=== PATIENT | female | born 1940 | race Caucasian/White ===

== ENCOUNTER 2017-03-16 11:48 | Emergency (ER) | payer OTHER, MEDICARE ==
[~2017-03-16] VITALS: Ht 167.6 cm; Wt 113.4 kg
[2017-03-16 11:54] VITALS: BP 180/95
--- NOTE | 2017-03-16 12:36 | ED GI/GU/ABDOMINAL COMPLAINT ---
History of Present Illness General Chief Complaint: Female Urogenital Problems Stated Complaint: ?KIDNEY STONE Source: patient Exam Limitations: no limitations Vital Signs & Intake/Output Vital Signs & Intake/Output Vital Signs Date Time Temp Pulse Resp B/P B/P Pulse O2 O2 Flow FiO2 Mean Ox Delivery Rate 03/16 1154 96.9 62 18 180/95 95 Room Air Allergies Coded Allergies: NO KNOWN ALLERGIES (02/28/13) Triage Note: 76 Y/O FEMALE C/O ? KIDNEY STONE. STATES SHE HAD HEMATURIA OVER THE WEEKEND FOR 1 DAY BUT NO PAIN. TODAY BEGAN TO HAVE R FLANK PAIN RADIATING INTO RLQ. CALLED DOCTOR AND WAS PRESCRIBED ANTIBIOTIC FOR PRESUMED UTI. ALSO GIVEN OUTPT APPT FOR ULTRASOUND OF KIDNEYS AND BLADDER. REPORTS CONTINUED PAIN AND NAUSEA. URINE REQUESTED, STATES SHE WILL NEED A HAT TO COLLECT SAMPLE Triage Nurses Notes Reviewed? yes ? N Is pt currently ? No Onset: Gradual Duration: waxing and waning Timing: remote history Quality/Severity: moderate, sharpness Severity Numbers: 8 Location: right flank, right lower quadrant Radiation: groin Activities at Onset: none No Modifying Factors: none HPI: Patient is a 76-year-old female presenting to the emergency department with chief complaint of right flank pain that started approximately 5 days ago has been intermittent. She also noticed hematuria with onset of symptoms 5 days ago. Since then symptoms have been waxing and waning. When the pain comes on its moderate, 8 out of 10 and sharp. Pain radiates around her right flank and into her groin area. Positive dysuria. Positive hematuria. No fevers or chills. She saw her primary care physician yesterday who started her on antibiotics for a urinary tract infection. At the time she saw her primary care physician she was not having any pain any her urine appeared clear. Patient reports nausea since last night, no vomiting. Remote history of kidney stone 4 years ago. History of hypERparathyroidism. (NICK SHERWOOD) Reconcile Medications Hydrocodone/Acetaminophen ([place] 5-325 Tablet) 5 MG-325 MG TABLET 1-2 TAB PO Q4-6 PRN PRN PAIN Ibuprofen 600 MG TABLET 1 TAB PO Q6PRN PRN pain with food Ondansetron (Zofran Odt) 4 MG TAB.RAPDIS 1 TAB SL TID PRN NAUSEA Oxycodone HCl/Acetaminophen (Percocet 5-325 MG Tablet) 5 MG-325 MG TABLET 1-2 TAB PO Q6P PRN severe pain Tamsulosin HCl (Flomax) 0.4 MG CAP.ER.24H 1 CAP PO DAILY KIDNEY STONE (ALIREZA KRISHNAMURTHY,KEYONNA Contreras) Past History Travel History Traveled to [place] past 21 day No Medical History Any Pertinent Medical History? see below for history Neurological: NONE EENT: NONE Cardiovascular: hypertension Respiratory: NONE Gastrointestinal: NONE Hepatic: NONE Renal: NONE Musculoskeletal: NONE Psychiatric: NONE Endocrine: hypothyroidism, PARATHYROID DISEASE Blood Disorders: NONE Cancer(s): NONE CONSULTING PSYCHIATRIST/Reproductive: NONE Surgical History Surgical History: non-contributory Psychosocial History What is your primary language Fijian Tobacco Use: Current Not Daily Family History Hx Contributory? No (NICK SHERWOOD) Review of Systems Review of Systems Constitutional: Reports: no symptoms. Comments Review of systems: See HPI, All other systems negative. Constitutional, no chills fever or weight loss HEENT: No visual changes no sore throat no congestion Cardiovascular: No chest pain ,palpitation , orthopnea or ankle swelling Skin, no jaundice no rashes Respiratory: No dyspnea cough sputum or hemoptysis GI: no vomiting : Positive dysuria and hematuria Muscle skeletal: no back pain, no neck pain, Neurologic: No numbness no confusion, no headaches Psych: No stress anxiety Immunology: No splenectomy or history of AIDS (NICK SHERWOOD) Physical Exam Physical Exam General Appearance: well developed/nourished, no apparent distress, alert, awake , comfortable Gastrointestinal: normal bowel sounds, soft, tenderness (RIGHT FLANK) Comments: Well-developed well-nourished person in no acute distress HEENT:Pupils equally round and reactive to light and accommodation. Nose is atraumatic. Neck: Normal inspection Back: MINIMAL right CVA tenderness. Full range of motion Cardiovascular: Regular rate and rhythms no murmurs rubs or gallops, normal JVP Respiratory: Chest nontender. No respiratory distress.breath sounds clear to auscultation bilaterally Abdomen: Soft, obese, mild tenderness to palpation over the right flank, no right lower quadrant pain to palpation, nondistended, no appreciable organomegaly. Normal bowel sounds. No ascites Extremity: No edema Neuro: Alert oriented x3 Skin: No appreciable rash on exposed skin, skin is warm and dry. Psych: Mood and affect is normal, memory and judgment is normal. Core Measures ACS in differential dx? No Severe Sepsis Present: No Septic Shock Present: No (JADON GARRETT,NICK) Progress Differential Diagnosis: hernia, kidney stone, ovarian cyst, UTI/pyelo, HYDRONEPHROSIS, PYELONEPHRITIS Plan of Care: Orders Procedure Date/time Status Add-on Test (ER Only) 03/16 1247 Active PARATHYROID HORMONE 03/16 1236 Complete COMPREHENSIVE METABOLIC PANEL 03/16 1236 Complete CBC WITHOUT DIFFERENTIAL 03/16 1236 Complete CULTURE,URINE 03/16 1152 Active URINALYSIS 03/16 1152 Complete Laboratory Tests 03/16/17 1256: Anion Gap 10, Estimated GFR 31 L, BUN/Creatinine Ratio 22.5, Glucose 83, Calcium 11.3 H, Total Bilirubin 0.5, AST 28, ALT 28, Alkaline Phosphatase 92, Total Protein 6.9, Albumin 4.5, Globulin 2.4, Albumin/Globulin Ratio 1.9, PTH Intact 332.1 H, CBC w Diff NO MAN DIFF REQ, RBC 4.06 L, MCV 89.1, MCH 29.2, RDW 14.6 H, MPV 9.7, Gran % 74.0, Lymphocytes % 15.6 L, Monocytes % 7.3, Eosinophils % 2.7, Basophils % 0.4, Absolute Granulocytes 9.4 H, Absolute Lymphocytes 2.0, Absolute Monocytes 0.9 H, Absolute Eosinophils 0.3, Absolute Basophils 0.1, PUBS MCHC 32.7 L 03/16/17 1228: Urine Color YEL, Urine Clarity HAZY H, Urine pH 6.0, Ur Specific Western 1.025, Urine Protein 30 H, Urine Ketones NEG, Urine Nitrite NEG, Urine Bilirubin NEG, Urine Urobilinogen 0.2, Ur Leukocyte Esterase SMALL H, Ur Microscopic SEDIMENT EXAMINED, Urine RBC 50-75 H, Urine WBC 1-3 H, Ur Epithelial Cells FEW, Urine Bacteria RARE H, Hyaline Casts RARE H, Urine Mucus RARE, Urine Hemoglobin LARGE H, Urine Glucose NEG Microbiology 03/16 1228 URINE ROUT: Urine Culture - RECD Diagnostic Imaging: Viewed by Me: CT Scan. Discussed w/RAD: CT Scan. Radiology Impression: PATIENT: BIBI CLARKE PRESENT AGE: 76 PATIENT ACCOUNT NO: [id number] : 38 LOCATION: ER ORDERING PHYSICIAN: NICK GARRETT SERVICE DATE: 03/16/176123 EXAM TYPE: CAT - CT ABD & PELVIS W/O IV CONTRAS EXAMINATION: CT ABDOMEN AND PELVIS WITHOUT CONTRAST CLINICAL INFORMATION: Right flank pain COMPARISON: 02/28/2013 TECHNIQUE: Multidetector volumetric imaging was performed from the superior aspect of the liver through the pubic symphysis. Sagittal and coronal reformatted images were obtained on the technologist's workstation. DLP: 1390 mGy-cm FINDINGS: LUNG BASES: Bibasilar subsegmental atelectasis. The visualized cardiac structures are unremarkable. LIVER, GALLBLADDER, AND BILIARY TREE: The liver is normal in size, shape, and attenuation. No focal hepatic lesion or biliary ductal dilatation is present. The gallbladder is unremarkable with no evidence of radiopaque gallstones, gallbladder wall thickening, or obvious pericholecystic inflammatory changes. PANCREAS: Unremarkable. SPLEEN: Unremarkable. ADRENAL GLANDS: Unremarkable. KIDNEYS AND URETERS: The kidneys are normal in size, shape, and attenuation. There is a left midpole exophytic 2.3 cm simple cyst. There is mild right hydroureteronephrosis with mild perinephric and periureteral stranding. There is a 0.3 cm obstructing calculus in the distal ureter approximately 4 cm proximal to the ureterovesicular junction. There is a 0.1 cm left upper pole nonobstructive calculus 13 cm from the posterior axillary line. No additional renal calculi or ureteral calculi are visualized. BLADDER: Decompressed with no gross abnormality. GASTROINTESTINAL TRACT: The stomach and small bowel are unremarkable. No dilated loops of bowel or evidence of obstruction. Scattered colonic diverticulosis without diverticulitis. No free air or free fluid. ABDOMINAL WALL: Fat-containing umbilical hernia. Additional nonspecific fat is seen along the right lateral rectus musculature, unchanged. This may also represent hernia. LYMPH NODES: Normal. VASCULAR: Mild atherosclerotic calcifications. PELVIC VISCERA: Calcifications in the uterus suggestive of fibroids. No adnexal mass. OSSEOUS STRUCTURES: No acute or suspicious osseous abnormality. Multilevel degenerative changes of the spine. Vacuum disc phenomenon at multiple levels. Vertebral body hemangioma at T12. IMPRESSION: Mild right hydroureteronephrosis with a distal ureteral 0.3 cm obstructing calculus. Punctate nonobstructing left upper pole calculus. DICTATED BY: PAOLO KRISHNAMURTHY,DISHA DATE/TIME DICTATED:03/16/171323 SETTER IN[employer] HEATING EQUIPMENT: [employer] DATE/TIME TRANSCRIBED:03/16/171323 CONFIDENTIAL, DO NOT COPY WITHOUT APPROPRIATE AUTHORIZATION. <Electronically signed in Other Vendor System> SIGNED BY: PAOLO KRISHNAMURTHY,DISHA 03/16/17 9560 Initial ED EKG: none Comments: 03/16/2017 2:15:[address] RODRIGUEZ, covering urologist, recommend sending patient home with pain medication, Flomax and his contact information to schedule outpatient appointment. Patient was informed of all imaging results and lab work results. At this time patient reports pain is returning, patient will be medicated with IV morphine, Flomax. We will reevaluate. 03/16/2017 2:45:54 PM patient feeling improved after Flomax and morphine and Zofran. Patient will be discharged home with medications, given strainer. She' ll follow-up with urology. Educated on signs and symptoms to return. D/W DR RAMSEY AND HE AGREES WITH PLAN. (NICK SHERWOOD) Departure Departure Time of Disposition: 1403 Disposition: HOME OR SELF CARE Condition: Stable Clinical Impression Primary Impression: Nephrolithiasis Secondary Impressions: Hydronephrosis Qualifiers: Hydronephrosis type: with renal calculous obstruction Qualified Code: N13.2 - Hydronephrosis with renal and ureteral calculous obstruction Hypercalcemia Referrals: ESTEFANIA KRISHNAMURTHY,ELLIOTT GAYLE MD,MARK Gonzalez (PCP/Family) Additional Instructions: Follow-up with urology call to make an appointment. Use strainer when urinating to help catch the stone. Increase fluid intake. Take Flomax as prescribed to help pass the stone, for severe pain take [place] as prescribed. Continue taking previously prescribed antibiotic. Return for worsening symptoms or concerns. Departure Forms: Customer Survey General Discharge Information Prescriptions: Current Visit Scripts Tamsulosin HCl (Flomax) 1 CAP PO DAILY #14 CAP Hydrocodone/Acetaminophen ([place] 5-325 Tablet) 1-2 TAB PO Q4-6 PRN PRN PAIN #15 TAB Ondansetron (Zofran Odt) 1 TAB SL TID PRN NAUSEA #10 TAB (NICK SHERWOOD) PA/ENTRY LEVEL SOFTWARE ENGINEER Co-Sign Statement Statement: ED Attending supervision documentation- [x] I saw and evaluated the patient. I have also reviewed all the pertinent lab results and diagnostic results. I agree with the findings and the plan of care as documented in the PA's/ENTRY LEVEL SOFTWARE ENGINEER's documentation. [] I have reviewed the ED Record and agree with the PA's/ENTRY LEVEL SOFTWARE ENGINEER's documentation. [] Additions or exceptions (if any) to the PAs/ENTRY LEVEL SOFTWARE ENGINEER's note and plan are summarized below: [] (ALIREZA KRISHNAMURTHY,KEYONNA Contreras)
[2017-03-16 13:17] LABS: ABSOLUTE BASOPHIL COUNT 0.1 /CUMM (0.0-0.2); ABSOLUTE EOSINOPHIL COUNT 0.3 /CUMM (0.0-0.7); ABSOLUTE GRANULOCYTE CT 9.4 /CUMM (1.4-6.5); ABSOLUTE MONOCYTE COUNT 0.9 /CUMM (0.10-0.60); BASOPHIL % 0.4 % (0.0-2.0); EOSINOPHIL % 2.7 % (0-5); HEMATOCRIT 36.2 % (37-47); MEAN CORPUSCULAR HGB 29.2 PG (27.0-31.0); MEAN CORPUSCULAR HGB CONC 32.7 G/DL (33.0-37.0); MEAN CORPUSCULAR VOLUME 89.1 FL (81.0-99.0); MEAN PLATELET VOLUME 9.7 FL (7.4-10.4); PLATELET COUNT 283 /CUMM (130-400); RBC DISTRIBUTION WIDTH 14.6 % (11.5-14.5); RED BLOOD CELL CT 4.06 /CUMM (4.20-5.40); WHITE BLOOD CELL COUNT 12.8 /CUMM (4.8-10.8)
--- NOTE | 2017-03-16 13:39 | CT SCAN REPORT ---
EXAMINATION: CT ABDOMEN AND PELVIS WITHOUT CONTRAST CLINICAL INFORMATION: Right flank pain COMPARISON: 02/28/2013 TECHNIQUE: Multidetector volumetric imaging was performed from the superior aspect of the liver through the pubic symphysis. Sagittal and coronal reformatted images were obtained on the technologist's workstation. DLP: 1390 mGy-cm FINDINGS: LUNG BASES: Bibasilar subsegmental atelectasis. The visualized cardiac structures are unremarkable. LIVER, GALLBLADDER, AND BILIARY TREE: The liver is normal in size, shape, and attenuation. No focal hepatic lesion or biliary ductal dilatation is present. The gallbladder is unremarkable with no evidence of radiopaque gallstones, gallbladder wall thickening, or obvious pericholecystic inflammatory changes. PANCREAS: Unremarkable. SPLEEN: Unremarkable. ADRENAL GLANDS: Unremarkable. KIDNEYS AND URETERS: The kidneys are normal in size, shape, and attenuation. There is a left midpole exophytic 2.3 cm simple cyst. There is mild right hydroureteronephrosis with mild perinephric and periureteral stranding. There is a 0.3 cm obstructing calculus in the distal ureter approximately 4 cm proximal to the ureterovesicular junction. There is a 0.1 cm left upper pole nonobstructive calculus 13 cm from the posterior axillary line. No additional renal calculi or ureteral calculi are visualized. BLADDER: Decompressed with no gross abnormality. GASTROINTESTINAL TRACT: The stomach and small bowel are unremarkable. No dilated loops of bowel or evidence of obstruction. Scattered colonic diverticulosis without diverticulitis. No free air or free fluid. ABDOMINAL WALL: Fat-containing umbilical hernia. Additional nonspecific fat is seen along the right lateral rectus musculature, unchanged. This may also represent hernia. LYMPH NODES: Normal. VASCULAR: Mild atherosclerotic calcifications. PELVIC VISCERA: Calcifications in the uterus suggestive of fibroids. No adnexal mass. OSSEOUS STRUCTURES: No acute or suspicious osseous abnormality. Multilevel degenerative changes of the spine. Vacuum disc phenomenon at multiple levels. Vertebral body hemangioma at T12. IMPRESSION: Mild right hydroureteronephrosis with a distal ureteral 0.3 cm obstructing calculus. Punctate nonobstructing left upper pole calculus.
[2017-03-16] MEDS ORDERED: ZOFRAN ODT4 M1 SL (14:20)
[2017-03-16] MEDS ORDERED: NORCO 5-325 TA1 EACH PO (14:20)
[2017-03-16] MEDS ORDERED: FLOMAX0.4 M1 PO (14:20)
[2017-03-17] MEDS ORDERED: IBUPROFEN600 M1 PO (02:50)
[2017-03-17] MEDS ORDERED: PERCOCET 5-3251 EACH PO (02:50)
== END 2017-03-16 15:18 ==
LOC: ERH 11:48
PROVIDERS: Physician Assistant
DX: N20.0 Calculus of kidney (principal); N13.30 Unspecified hydronephrosis
CPT/HCPCS: 74176; 81001; 87086; 96374; 96375; J0131; J2405